=== PATIENT | female | born 1945 | race Caucasian/White ===

== ENCOUNTER 2017-09-06 10:10 | Inpatient (IN) | payer MEDICARE ==
[2017-09-05 16:21] LABS: BASOPHILS # (AUTO) 0.1 X10'3 (0-0.2); BASOPHILS % (AUTO) 0.8 % (0-1); EOSINOPHILS # (AUTO) 0.3 X10'3 (0-0.9); EOSINOPHILS % (AUTO) 3.5 % (0-6); LYMPHOCYTES # (AUTO) 2.3 X10'3 (1.1-4.8); LYMPHOCYTES % (AUTO) 27.1 % (21-51); MEAN CORPUSCULAR HEMOGLOBIN 33.1 PG (27.0-31.0); MEAN CORPUSCULAR VOLUME 97.3 FL (78-98); MEAN PLATELET VOLUME 8.1 FL (7.4-10.4); MONOCYTES # (AUTO) 0.8 X10'3 (0-0.9); MONOCYTES % (AUTO) 9.4 % (2-12); NEUTROPHILS # (AUTO) 4.9 X10'3 (1.8-7.7); NEUTROPHILS % (AUTO) 59.2 % (42-75); PRE OP HEMATOCRIT 41.6 % (35.0-45.0); PRE OP HEMOGLOBIN 14.1 g/dL (12.0-16.0); PRE OP PLATELET COUNT 217 X10'3 (140-440); RED BLOOD COUNT 4.27 X10'6 (4.20-5.60); RED CELL DISTRIBUTION WIDTH 14.1 % (11.5-14.5)
[2017-09-05 16:36] LABS: ALBUMIN 3.5 G/DL (3.4-5.0); ALKALINE PHOSPHATASE 101 IU/L (46-116); BLOOD UREA NITROGEN 11 MG/DL (7-18); BUN/CREATININE RATIO 12.1 (6.6-38.0); CALCIUM 9.1 MG/DL (8.5-10.1); CHLORIDE 107 MMOL/L (99-107); CREATININE 0.91 MG/DL (0.40-0.90); PRE OP ANION GAP 9 (8-16); PRE OP AST 66 U/L (10-37); PRE OP BILIRUB, TOTAL 0.6 MG/DL (0.0-1.0); PRE OP GLUCOSE 119 MG/DL (70-104); PRE OP POTASSIUM 3.9 MMOL/L (3.4-5.1); PRE OP SODIUM 143 MMOL/L (135-145); TOTAL CARBON DIOXIDE 27.5 MMOL/L (24-32); eGFR 61 ML/MIN
[2017-09-05 16:38] LABS: PRE OP ALT 168 U/L (30-65)
[~2017-09-06] VITALS: Ht 167.6 cm; Wt 87.6 kg
[2017-09-06] VITALS (17 sets, daily range): BP systolic 108–138; BP diastolic 53–90
[~2017-09-06 10:10] MED LIST: ASPI-1265 PO; DOCUMENT DATE & TIME OF BETA-BLOCKER PO ONE; ERGO500014 PO; METO100T7 PO; MULT-1085 PO; OXYC10TA86 PO; VANCOMYCIN INJ 1000 MG in NORMAL SALINE 250ml IV.SOLN IV ONE; ceFAZolin inj. 2,000 MG in normal saline 100ml IV soln 100 ML IV ONE; dexamethasone sod phosphate 4mg/ml inj. ONE; famotidine 20mg tablet PO ONE; midazolam 2 mg/2 ml injection ONE; ondansetron/PF 4mg/2ml inj ONE; propofol inj 40 ML IV ONE; ringers solution, lacted 1,000 ML IV SCH; tranexamic acid inj. 820 MG in normal saline 100ml IV soln 91.8 ML IV ONE
[2017-09-06] MEDS ORDERED: vancomycin 1,000mg inj ONE (14:51)
[2017-09-06] MEDS ORDERED: ROPIVAcaine 0.5% (5mg/ml) 30ml vial ONE ×2 (14:51→15:52)
[2017-09-06] MEDS ORDERED: ketorolac trometh. 30mg/ml inj. ONE (14:51)
[2017-09-06] MEDS ORDERED: sevoflurane 250ml liquid IH ONE (15:25)
[2017-09-06] MEDS ORDERED: dexamethasone sod phosphate 10mg/ml inj ONE (15:25)
[2017-09-06] MEDS ORDERED: midazolam 2 mg/2 ml injection ONE (15:26)
[2017-09-06] MEDS ORDERED: fentaNYL/PF 50MCG/1 ML 2ML syringe ONE ×2 (15:26→15:49)
[2017-09-06] MEDS ORDERED: LIDOcaine 2% (20mg/ml) 5ml vial ONE (15:52)
[2017-09-06] MEDS ORDERED: propofol inj 20 ML IV ONE (15:52)
[2017-09-06] MEDS ORDERED: ringers solution, lacted 1,000 ML IV SCH (17:08)
[2017-09-06] MEDS ORDERED: HYDROmorphone 1 mg/ml syringe IV PRN ×4 (17:10→18:25)
[2017-09-06] MEDS ORDERED: ondansetron/PF 4mg/2ml inj IV PRN ×2 (17:10→17:30)
[2017-09-06] MEDS ORDERED: morphine 4 MG/ML inj SYRINge IV PRN (17:10)
[2017-09-06] MEDS ORDERED: bisacodyl 10mg suppository rectal RC PRN (17:30)
[2017-09-06] MEDS ORDERED: acetaminophen 325mg tablet PO PRN (17:30)
[2017-09-06] MEDS ORDERED: magnesium hydroxide 30ml (MOM) UD suspension PO PRN (17:30)
[2017-09-06] MEDS ORDERED: HYDROmorphone inj. 0.5 MG/0.5 ML DISP.SYRIN IV PRN ×2 (17:30)
[2017-09-06] MEDS ORDERED: diphenhydrAMINE 25mg capsule PO PRN ×2 (17:30)
[2017-09-06] MEDS ORDERED: oxyCODONE IR 5mg (immed. release) tablet PO PRN ×2 (17:30)
[2017-09-06] MEDS ORDERED: ondansetron/PF 4mg/2ml inj ONE (17:33)
[2017-09-06] MEDS ORDERED: vancomycin/NS 1 GM ADD-VANTAGE 250 ML IV SCH (20:00)
[2017-09-06] MEDS: acetaminophen 325mg tablet PO SCH (20:28)
[2017-09-06] MEDS: oxyCODONE SR 10mg (sust. release) tab PO SCH (20:29)
[2017-09-06] MEDS: gabapentin 300mg capsule PO SCH (20:29)
[2017-09-06] MEDS: ketorolac tromethamine 15mg/ml inj. IV SCH (20:30)
[2017-09-06] MEDS ORDERED: sennosides 8.6mg tablet PO SCH (21:00)
[2017-09-06] MEDS ORDERED: tranexamic acid inj. 820 MG in normal saline 100ml IV soln 100 ML IV ONE (21:30)
[2017-09-06] MEDS: potassium cl 20mEq in 1/2 NS 1,000 ML IV SCH (21:59)
[2017-09-07] MEDS: ceFAZolin 1GM/D5W- ADD-VANTAGE 50 ML IV SCH ×2 (00:15→08:37)
[2017-09-07] MEDS: potassium cl 20mEq in 1/2 NS 1,000 ML IV SCH ×2 (01:29→09:29)
[2017-09-07 02:00] VITALS: BP 125/67
[2017-09-07] MEDS: ketorolac tromethamine 15mg/ml inj. IV SCH ×2 (02:20→08:37)
[2017-09-07] MEDS: acetaminophen 325mg tablet PO SCH ×2 (02:20→08:37)
[2017-09-07 05:00] VITALS: BP 101/54
[2017-09-07] MEDS ORDERED: OXYC-658 PO (06:34)
[2017-09-07 06:56] LABS: ANION GAP 10 (8-16); CHLORIDE 109 MMOL/L (99-107); POTASSIUM 4.7 MMOL/L (3.5-5.1); SODIUM 144 MMOL/L (135-145); TOTAL CARBON DIOXIDE 25.3 MMOL/L (24-32)
[2017-09-07 06:57] LABS: BASOPHILS % (AUTO) 0 % (0-1); EOSINOPHILS % (AUTO) 0 % (0-6); HEMOGLOBIN 12.7 g/dl (12.0-16.0); LYMPHOCYTES # (AUTO) 0.9 X10'3 (1.1-4.8); LYMPHOCYTES % (AUTO) 9.1 % (21-51); MEAN CORPUSCULAR HEMOGLOBIN 33.3 PG (27.0-31.0); MEAN CORPUSCULAR HGB CONC 34.3 % (33.0-36.5); MEAN CORPUSCULAR VOLUME 97.1 FL (78-98); MEAN PLATELET VOLUME 8.6 FL (7.4-10.4); MONOCYTES # (AUTO) 0.7 X10'3 (0-0.9); MONOCYTES % (AUTO) 7.8 % (2-12); NEUTROPHILS # (AUTO) 7.9 X10'3 (1.8-7.7); NEUTROPHILS % (AUTO) 83.1 % (42-75); PLATELET COUNT 210 X10'3 (140-440); RED BLOOD COUNT 3.81 X10'6 (4.20-5.60); RED CELL DISTRIBUTION WIDTH 13.3 % (11.5-14.5); WHITE BLOOD COUNT 9.5 X10'3 (4.5-11.0)
[2017-09-07] MEDS ORDERED: aspirin 81mg tab.chew PO SCH (08:00)
[2017-09-07] MEDS ORDERED: metoprolol succinate 25mg (24-HOUR) SR. Tablet PO SCH (08:00)
[2017-09-07] MEDS ORDERED: multivitamins, therapeutics tablet PO SCH (08:00)
[2017-09-07] MEDS ORDERED: aspirin 325mg tablet PO SCH (08:30)
[2017-09-07] MEDS: gabapentin 300mg capsule PO SCH (08:38)
[2017-09-07] MEDS: oxyCODONE SR 10mg (sust. release) tab PO SCH (08:38)
[2017-09-07 10:00] VITALS: BP 113/57
[2017-09-07] MEDS ORDERED: celeCOXIB 100mg capsule PO SCH (20:00)
[2017-09-08] MEDS ORDERED: acetaminophen 325mg tablet PO PRN (17:30)
== END 2017-09-07 10:40 | disposition home or self-care (01) | DRG 483 ==
LOC: PAS 10:10 → ORTHO 4S 17:29
PROVIDERS: ADMIT Orthopaedic Surgery; ATTEND Orthopaedic Surgery
PROC: 0LS30ZZ Reposition Right Upper Arm Tendon, Open Approach (ICD-10-PCS; 2017-09-06)
PROC: 3E0T3BZ Introduction of Anesthetic Agent into Peripheral Nerves and Plexi, Percutaneous Approach (ICD-10-PCS; 2017-09-06)
PROC: BP181ZZ Fluoroscopy of Right Shoulder using Low Osmolar Contrast (ICD-10-PCS; 2017-09-06)
PROC: 0RRJ00Z Replacement of Right Shoulder Joint with Reverse Ball and Socket Synthetic Substitute, Open Approach (ICD-10-PCS; principal; 2017-09-06 15:25)
DX: S42.241A 4-part fracture of surgical neck of right humerus, initial encounter for closed fracture (principal); I10 Essential (primary) hypertension; W18.39XA Other fall on same level, initial encounter; Y93.89 Activity, other specified; Y92.89 Other specified places as the place of occurrence of the external cause; Z88.5 Allergy status to narcotic agent; Y99.8 Other external cause status; Z79.899 Other long term (current) drug therapy; Z79.82 Long term (current) use of aspirin
CPT/HCPCS: 36415; 73030; 76001; 80051; 80053; 85025; 87070; 93005; 97110; 97116; 97162; 97530; A4565; A7000; J0690; J1100; J1885; J2001; J2250; J2405; J2704; J2795; J3010; J3370; J7030; J7040; J7120